=== PATIENT | female | born 1970 ===

== ENCOUNTER 2021-09-07 22:52 | Emergency (ER) | payer BC ==
[2021-09-08] MEDS ORDERED: LIDOCAINE VISCOUS 2% SOLN 15 ML UDC ONE (01:57)
[2021-09-08] MEDS ORDERED: TETANUS & DIPHTHERIA TOX,ADULT 0.5 ML VIAL ONE (01:57)
--- NOTE | 2021-09-08 01:59 | EDPHYS ---
Physician Documentation [facility] Name: Domenica Kaur Age: 51 yrs Sex: Female : 1970 Arrival Date: 09/07/2021 Time: 22:57 Bed 12 Private MD: ED Physician Emanuel Valdovinos HPI: 09/08 00:21 This 51 yrs old Female presents to ER via Ambulatory with complaints of Head pm1 Injury-Adult. 00:21 The patient or guardian reports a laceration, clean. The complaints affect the back of pm1 head. Context of injury: The problem was sustained outdoors, resulted from stepping on uneven surface and falling backwards onto a step. Onset: The symptoms/episode began/occurred just prior to arrival. Associated signs and symptoms: Loss of consciousness: This patient did not experience any loss of consciousness. Pertinent negatives: headache, neck pain, vomiting. Severity of symptoms: in the emergency department the symptoms have improved. The patient has not experienced similar symptoms in the past. The patient has not recently seen a physician. . Drank approximately 1 bottle of wine and fell backwards when she stepped onto an uneven surface and hit the back of her head against a step. No LOC, headache, neck pain. 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 - Social history:: Smoking status: Patient denies any tobacco usage or history of. ROS: 00:21 Constitutional: Negative for fever, chills, and weight loss, Eyes: Negative for injury, pm1 pain, redness, and discharge, ENT: Negative for injury, pain, and discharge, Neck: Negative for injury, pain, and swelling, Cardiovascular: Negative for chest pain, palpitations, and edema, Respiratory: Negative for shortness of breath, cough, wheezing, and pleuritic chest pain, Abdomen/GI: Negative for abdominal pain, nausea, vomiting, diarrhea, and constipation, Back: Negative for injury and pain, MS/Extremity: Negative for injury and deformity. 00:21 Neuro: Negative for headache, weakness, numbness, tingling, and seizure. 00:21 Skin: Positive for laceration(s), of the parietal area. 00:21 All other systems are negative. Exam: 00:21 Constitutional: This is a well developed, well nourished patient who is awake, alert, pm1 and in no acute distress. 00:21 Back: No spinal tenderness. No costovertebral tenderness. Full range of motion. Skin: Warm, dry with normal turgor. Normal color with no rashes, and no evidence of cellulitis. Laceration as noted in head exam MS/ Extremity: Pulses equal, no cyanosis. Neurovascular intact. Full, normal range of motion. 00:21 Head/face: Noted is no obvious of injury or deformity except a laceration(s), that is linear, of the back of head. 00:21 Eyes: Exam is negative for acute changes, Extraocular movements: intact throughout, Conjunctiva: no acute changes, no injection, Sclera: no acute changes, icterus, is not appreciated. 00:21 ENT: Exam is negative for acute changes, External ear(s): no acute changes, Ear canal(s): no acute changes, TM's: no acute changes. 00:21 Neck: Exam negative for acute changes, C-spine: vertebral tenderness, is not appreciated, ROM/movement: no acute changes. 00:21 Cardiovascular: Exam negative for acute changes, Rate: normal, Rhythm: regular, Pulses: no pulse deficits are appreciated. 00:21 Respiratory: Exam negative for acute changes, respiratory distress, shortness of breath, Breath sounds: are clear throughout. 00:21 Neuro: Exam negative for acute changes, Orientation: is normal, Mentation: is normal, Motor: is normal, moves all fours. Vital Signs: 09/07 23:58 BP 138 / 94; Pulse 99; Resp 18 S; Temp 98.4(O); Pulse Ox 96% on R/A; Weight 104.33 kg bb (R); Height 5 ft. 8 in. (172.72 cm) (R); Pain 4/10; 09/08 02:00 BP 122 / 69; Pulse 87; Resp 16 S; Temp 98.4(O); Pulse Ox 96% on R/A; bb 09/07 23:58 Body Mass Index 34.97 (104.33 kg, 172.72 cm) Reading Coma Score: 09/07 23:59 Eye Response: spontaneous(4). Verbal Response: oriented(5). Motor Response: obeys bb commands(6). Total: 15. 09/08 00:21 Eye Response: spontaneous(4). Verbal Response: oriented(5). Motor Response: obeys pm1 commands(6). Total: 15. Laceration: 01:55 Wound Repair of 7cm ( 2.8in ) subcutaneous laceration to parietal area. Linear shaped.. pm1 Distal neuro/vascular/tendon intact. Wound prep: Extensive cleansing with hibiclenz by me, Wound irrigation with saline by me, Wound explored extensively, Copious irrigation. Skin closed with 7 1-0 Pettus using staple gun. Patient tolerated well. MDM: 00:10 Data reviewed: vital signs. Data interpreted: Pulse oximetry: on room air is 96 %. pm1 Interpretation: normal. 00:17 Patient medically screened. pm1 01:55 Counseling: I had a detailed discussion with the patient and/or guardian regarding: the pm1 historical points, exam findings, and any diagnostic results supporting the discharge/admit diagnosis, radiology results, the need for outpatient follow up, to return to the emergency department if symptoms worsen or persist or if there are any questions or concerns that arise at home. 09/08 00:08 Order name: CT Head C Spine pm1 Administered Medications: 01:55 CANCELLED (Physician Discretion): Viscous Lidocaine Liquid (4 %) 5 ml Mucous Membrane pm1 once 02:01 Drug: Viscous Lidocaine Liquid (4 %) 10 ml Route: Mucous Membrane; bb 02:02 Follow up: Response: Medication administered at discharge. 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 Exp: bb 01/27/2023. Lot #: [id number]. } Route: IM; Site: right deltoid; 02:02 Follow up: Response: Medication administered at discharge. bb Disposition: 06:15 Co-signature as Attending Physician, Emanuel Valdovinos MD. [email or web address] Disposition Summary: 09/08/21 01:58 Discharge Ordered Location: Home pm1 Problem: new pm1 Symptoms: have improved pm1 Condition: Stable pm1 Diagnosis - Laceration without foreign body of scalp pm1 - Unspecified injury of head, initial encounter pm1 Followup: pm1 - With: Emergency Department - When: As needed - Reason: Worsening of condition Followup: pm1 - With: Private Physician - When: 10 - 14 days - Reason: Recheck today's complaints, Continuance of care, Staple/Suture removal, Re-evaluation by your physician Discharge Instructions: - Discharge Summary Sheet pm1 - Head Injury, Adult pm1 - Laceration Care, Adult pm1 Forms: - Medication Reconciliation Form pm1 - Thank You Letter pm1 - Antibiotic Education pm1 - Prescription Opioid Use pm1 Prescriptions: - Cephalexin 500 mg Oral Capsule - take 1 capsule by ORAL route every 8 hours for 10 days; 30 capsule; Refills: 0, pm1 Product Selection Permitted Signatures: Dispatcher [employer] EDMile Roque RN RN Byron Lewis NP SALAD CHEF pm1 Emanuel Valdovinos MD MD [email or web address] Corrections: (The following items were deleted from the chart) 01:55 01:55 Viscous Lidocaine Liquid (4 %) 5 ml Mucous Membrane once ordered. pm1 pm1
--- NOTE | 2021-09-08 01:59 | ER ---
Nurse's Notes [facility] Name: Domenica Kaur Age: 51 yrs Sex: Female : 1970 Arrival Date: 09/07/2021 Time: 22:57 Bed 12 Private MD: Diagnosis: Laceration without foreign body of scalp;Unspecified injury of head, initial encounter Presentation: 09/07 23:58 Chief complaint: Patient states: she was out drinking and fell hitting her head has no bb LOC has lac to right side of scalp. Coronavirus screen: At this time, the client does not indicate any symptoms associated with coronavirus-19. Ebola Screen: No symptoms or risks identified at this time. 23:58 Method Of Arrival: Ambulatory bb 23:59 Mechanism of Injury: The problem was sustained at a bar or nightclub, resulted from a bb fall. Initial Sepsis Screen: Does the patient meet any 2 criteria? No. Patient's initial sepsis screen is negative. Does the patient have a suspected source of infection? No. Patient's initial sepsis screen is negative. Risk Assessment: Do you want to hurt yourself or someone else? Patient reports no desire to harm self or others. 23:59 Acuity: BRIDGET 4 bb Triage Assessment: 09/08 00:00 General: Appears in no apparent distress. Behavior is calm, cooperative. Pain: bb Complains of pain in head. Neuro: Level of Consciousness is awake, alert, obeys commands, Oriented to person, place, time, situation, Reports headache. Cardiovascular: Capillary refill < 3 seconds Patient's skin is warm and dry. Respiratory: Respiratory effort is even, unlabored, Respiratory pattern is regular. GI: No signs and/or symptoms were reported involving the gastrointestinal system. Derm: Skin is pink, warm \T\ dry. Wound noted right side of scalp. Musculoskeletal: Circulation, motion, and sensation intact. 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 - Social history:: Smoking status: Patient denies any tobacco usage or history of. Screenin:08 Abuse screen: Denies threats or abuse. Nutritional screening: No deficits noted. bb Tuberculosis screening: No symptoms or risk factors identified. Fall Risk None identified. Assessment: 02:08 Reassessment: Patient is alert, oriented x 3, equal unlabored respirations, skin bb warm/dry/pink. anahy intact, pt verbalized understanding of and agrees to plan of care discharge instructions given pt ambulated with steady gait to exit accompanied by friend. Vital Signs: 09/07 23:58 BP 138 / 94; Pulse 99; Resp 18 S; Temp 98.4(O); Pulse Ox 96% on R/A; Weight 104.33 kg bb (R); Height 5 ft. 8 in. (172.72 cm) (R); Pain 4/10; 09/08 02:00 BP 122 / 69; Pulse 87; Resp 16 S; Temp 98.4(O); Pulse Ox 96% on R/A; bb 09/07 23:58 Body Mass Index 34.97 (104.33 kg, 172.72 cm) bb Berger Coma Score: 09/07 23:59 Eye Response: spontaneous(4). Verbal Response: oriented(5). Motor Response: obeys bb commands(6). Total: 15. 09/08 00:21 Eye Response: spontaneous(4). Verbal Response: oriented(5). Motor Response: obeys pm1 commands(6). Total: 15. ED Course: 09/07 22:57 Patient arrived in ED. ja2 09/08 00:00 Triage completed. bb 00:00 Arm band placed on. bb 00:07 Byron Rubio NP is PHCP. pm1 00:07 Emanuel Valdovinos MD is Attending Physician. pm1 00:36 CT Head C Spine In Process Unspecified. EDMS 02:08 Patient has correct armband on for positive identification. bb 02:08 No provider procedures requiring assistance completed. Assist provider with laceration bb repair on scalp using anahy. Set up tray. Performed by Byron Rubio NP. Patient did not have IV access during this emergency room visit. Administered Medications: 01:55 CANCELLED (Physician Discretion): Viscous Lidocaine Liquid (4 %) 5 ml Mucous Membrane pm1 once 02:01 Drug: Viscous Lidocaine Liquid (4 %) 10 ml Route: Mucous Membrane; bb 02:02 Follow up: Response: Medication administered at discharge. 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 Exp: bb 01/27/2023. Lot #: [id number]. } Route: IM; Site: right deltoid; 02:02 Follow up: Response: Medication administered at discharge. jacob Outcome: 01:58 Discharge ordered by . pm1 02:08 Discharged to home ambulatory, with family. jacob 02:08 Condition: stable 02:08 Discharge instructions given to patient, Instructed on discharge instructions, follow up and referral plans. medication usage, wound care, Demonstrated understanding of instructions, follow-up care, medications, wound care, Prescriptions given X 1. 02:10 Patient left the ED. jacob Signatures: Dispatcher [employer] EDMile Roque RN RN Byron Lewis NP STUDENT LIAISON OFFICER pm1 Mira Nath
[2021-09-08 02:15] VITALS: TEMP 98.4; O2SAT 96
[2021-09-08 02:16] VITALS: BP 122/69
--- NOTE | 2021-09-08 17:30 | RAD REPORT ---
EXAM DESCRIPTION: CT - Head C Spine Mpr Wo Con - 09/08/2021 6:45 am CLINICAL HISTORY: PAIN. TECHNIQUE: Noncontrast CT through the head was performed. Axial, coronal, and sagittal reconstructio ns were created and sent to PACS. CT of the cervical spine was performed without contrast. Axial, coronal, and sagittal reconstructions were created and sent to PACS. These exams were performed according to our departmental dose-optimization program which includes use of Automated Exposure Control, adjustment of the mA and/or kV according to patient size and/or use o f iterative reconstruction technique. COMPARISON: None. FINDINGS: CT Head: The brain parenchyma appears unremarkable. There is no intra-axial or extra-axial bleed seen. There i s no mass or mass effect. The ventricles are normal in size, shape, and configuration. The orbital co ntents appear unremarkable. The visualized paranasal sinuses and mastoid air cells are clear. No acute fracture is identified. CT cervical spine: No acute osseous abnormality identified. Vertebral body height and alignment are maintained. No atlan todental interval widening. Atlantoaxial alignment is maintained. The facet joints are well aligned. The posterior elements are intact. The occipital condyles are well aligned with the C1 lateral masses . The transverse foramina are intact. Mild disc height loss at C5-6 and C6-7, with no significant gregory tral canal or neuroforaminal narrowing throughout the cervical spine. Paraspinal soft tissues: No prevertebral soft tissue swelling. No evidence of epidural hematoma. No a cute findings in the demonstrated portions of the lung apices. IMPRESSION: 1. No acute intracranial abnormality identified. 2. No acute osseous abnormality identified in the cervical spine. Mild degenerative changes. Electronically signed by: Batool Pate MD 09/08/2021 12:58 AM DOG LICENSER Due to temporary technical issues with the PACS/Fluency reporting system, reports are being signed by the in house radiologists without review as a courtesy to insure prompt reporting. The interpreting radiologist is fully responsible for the content of the report.
== END 2021-09-08 02:10 | disposition home or self-care (01) ==
LOC: ER 22:52
PROC: 0JQ00ZZ Repair Scalp Subcutaneous Tissue and Fascia, Open Approach (ICD-10-PCS; principal; 2021-09-07)
DX: S01.01XA Laceration without foreign body of scalp, initial encounter (principal); W18.39XA Other fall on same level, initial encounter; Y93.89 Activity, other specified; Y92.9 Unspecified place or not applicable; Z23 Encounter for immunization
CPT/HCPCS: 70450; 72125; 90471; 90714; 99284